=== PATIENT | female | born 1955 | race Two or more races ===

== ENCOUNTER 2016-08-20 20:35 | Emergency (ER) | payer OTHER ==
[~2016-08-20] VITALS: Ht 160 cm; Wt 69.5 kg
[~2016-08-20 20:35] MED LIST: BENA10TA48 PO; METO50TA16 PO
[2016-08-20 20:38] VITALS: Ht 160 cm; Wt 69.5 kg
--- NOTE | 2016-08-20 21:22 | ERA ---
ER Documentation Chief Complaint Date/Time DATE: 08/20/16 TIME: 21:21 Chief Complaint High blood pressure HPI The patient is a 61-year-old male, resenting to the ER because of high blood pressure at 6 PM, systolic blood pressure was 150, she became anxious and panic then called 911. She had Yor[place] food, strong coffee and lots of street candy at 5:30 PM. She normally does not eat these foods. She felt better at this time, she denies dizziness, syncope, near syncope, neck pain, chest pain, dyspnea, abdominal pain, vomiting, dysuria, diarrhea. She used to take her blood pressure medication until 3 months ago when it was stopped by her doctor because her blood pressure got better. She does not smoke nor drink Past medical history: CAD, hypertension, depression, anxiety, chronic bilateral lower extremity edema Past surgical history: Stent PCI 2 years ago, negative stress tests about 5 months ago ROS All systems reviewed and are negative except as per history of present illness. Medications Home Meds Reported Medications Ticagrelor (Brilinta) 60 Mg Tablet, 60 MG PO, TAB 08/20/16 Atorvastatin Calcium* (Atorvastatin Calcium*) 20 Mg Tablet, 20 MG PO QHS, #30 TAB 08/20/16 Aspirin* (Aspirin* EC) 81 Mg Tablet.dr, 81 MG PO DAILY, TAB 08/20/16 Clonazepam* (Clonazepam*) 0.5 Mg Tablet, 0.5 MG PO Q8H for ANXIETY, TAB 08/20/16 Lorazepam* (Lorazepam*) 0.5 Mg Tablet, 0.5 MG PO Q6 Y for ANXIETY, TAB 08/20/16 Iodine (KELP) 150 Mcg Tablet, 150 MCG PO, TAB 08/20/16 Ergocalciferol (Vitamin D2) (VITAMIN D2) 50,000 Unit Capsule, 51819 UNIT PO, CAP 08/20/16 Benazepril Hcl* (Benazepril Hcl*) Unknown Strength Tablet, PO DAILY, #30 TAB 06/25/15 Metoprolol Succinate* (Toprol XL*) Unknown Strength Tab.er.24h, PO DAILY, #20 TAB 06/25/15 Allergies Allergies: Coded Allergies: No Known Allergy (Unverified , 08/20/16) PMhx/Soc History of Surgery: No Anesthesia Reaction: No Hx Neurological Disorder: No Hx Respiratory Disorders: No Hx Cardiac Disorders: Yes (STENT X 2, HTN) Hx Psychiatric Problems: Yes (DEPRESSION, ANXIETY) Hx Miscellaneous Medical Probl: No Hx Alcohol Use: No Hx Substance Use: No Hx Tobacco Use: No Smoking Status: Never smoker Physical Exam Vitals Vital Signs Date Time Temp Pulse Resp B/P Pulse Ox O2 Delivery O2 Flow Rate FiO2 08/20/16 23:03 98.4 104 16 130/81 98 Room Air 08/20/16 21:11 98.1 82 18 164/89 08/20/16 20:38 98.3 96 18 185/89 96 Physical Exam Const: No acute distress. Head: Atraumatic. Eyes: Normal Conjunctiva. ENT: Normal External Ears, Nose and Mouth. Neck: Full range of motion. No meningismus. Resp: Clear to auscultation bilaterally. Cardio: Regular rate and rhythm. Abd: Soft, non distended, normal bowel sounds, non tender. Skin: No petechiae or rashes. Back: No midline or flank tenderness. Ext: Minimal bilateral extremity edema, no calf tenderness Neur: Awake and alert. No focal deficit Psych: Normal Mood and Affect. Result Diagram: 08/20/16214908/20/162149 Results 24 hrs Laboratory Tests Test 08/20/16 21:50 White Blood Count 9.010^3/ul Red Blood Count 4.9710^6/ul Hemoglobin 13.9g/dl Hematocrit 41.9% Mean Corpuscular Volume 84.3fl Mean Corpuscular Hemoglobin 28.0pg Mean Corpuscular Hemoglobin Concent 33.2g/dl Red Cell Distribution Width 13.3% Platelet Count 65886^3/UL Mean Platelet Volume 9.5fl Neutrophils % 74.0% Lymphocytes % 18.0% Monocytes % 5.9% Eosinophils % 0.7% Basophils % 0.7% Nucleated Red Blood Cells % 0.0/100WBC Neutrophils # 6.710^3/ul Lymphocytes # 1.610^3/ul Monocytes # 0.510^3/ul Eosinophils # 0.110^3/ul Basophils # 0.110^3/ul Nucleated Red Blood Cells # 0.010^3/ul Sodium Level 137mmol/L Potassium Level 3.9mmol/L Chloride Level 103mmol/L Carbon Dioxide Level 27mmol/L Anion Gap 11 Blood Urea Nitrogen 15mg/dl Creatinine 0.59mg/dl Glucose Level 109mg/dl Calcium Level 9.5mg/dl Current Medications Medications (Trade) Dose Ordered Sig/Georgie Route PRN Reason Start Time Stop Time Status Last Admin Dose Admin Lorazepam (Ativan) 0.5 mg ONCE ONCE PO 08/20/16 22:00 08/20/16 22:01 DC Procedures/MDM [place] [id number] Radiology Main Line: [phone] DIAGNOSTIC IMAGING REPORT Patient: KAELA VALENTINE : 1955 Age: 61 Sex: F MR #: [id number] DOS: 08/20/162137 Ordering MD: HENNY NEVES MD Location: E/R Room/Bed: PROCEDURE: XR Chest. CLINICAL INDICATION: Chest Pain. TECHNIQUE: Single frontal view of the chest. COMPARISON: None. FINDINGS: The cardiomediastinal silhouette is within normal limits. The lungs are clear. No signs of pleural fluid or pneumothorax are seen. The osseous structures and soft tissues are unremarkable. IMPRESSION: No evidence for active cardiopulmonary disease. RPTAT: [facility] Physician Meng Date Time Electronically viewed and signed by Physician Meng on 08/20/2016 23:01 RS/ CC: HENNY NEVES MD EKG: Read by emergency physician Rate/Rhythm: Normal Sinus Rhythm 79 beats/min QRS, ST, T-waves: No ST elevation, no T inversion, inferior Q waves Impression: Abnormal EKG MEDICAL MAKING DECISION: The patient is a 61-year-old female, presenting with acute anxiety attack, she was treated with Ativan 0.5 mg p.o. with good response , blood pressure improved The differential diagnoses considered include but are not limited to acute coronary syndrome, acute myocardial infarction, pericarditis, pulmonary embolism , aortic dissection, pneumonia, pleural effusion, pneumothorax, GERD, chest wall pain. Departure Diagnosis: Primary Impression: Anxiety Condition: Good Comments I discussed the findings with the patient. I advised the patient to follow-up with the primary physician in about 1-2 days, sooner if needed and return if any concern. HENNY NEVES MD Aug 20, 2016 21:22
[2016-08-20] MEDS ORDERED: LORAZEPAM 0.5 MG TAB PO ONE (22:00)
[2016-08-20 22:10] LABS: ADD SCAN DIFF NO
[2016-08-20 22:13] LABS: BASOPHIL # 0.1 10^3/ul (0.0-0.1); BASOPHILS % 0.7 % (0.0-2.0); EOSINOPHILS # 0.1 10^3/ul (0.0-0.5); EOSINOPHILS % 0.7 % (0.0-7.0); HEMATOCRIT 41.9 % (37.0-47.0); HEMOGLOBIN 13.9 g/dl (12.0-16.0); LYMPHOCYTES # 1.6 10^3/ul (0.8-2.9); MEAN CORPUSCULAR HGB CONC 33.2 g/dl (32.0-37.0); MEAN CORPUSCULAR VOLUME 84.3 fl (82.0-101.0); MEAN PLATELET VOLUME 9.5 fl (7.4-10.4); MONOCYTE # 0.5 10^3/ul (0.3-0.9); MONOCYTES % 5.9 % (0.0-11.0); NEUTROPHIL # 6.7 10^3/ul (1.6-7.5); PLATELET COUNT 217 10^3/UL (140-415); RED BLOOD COUNT 4.97 10^6/ul (4.20-5.40); RED CELL DISTRIBUTION WIDTH 13.3 % (11.5-14.5)
[2016-08-20] MEDS ORDERED: ERGO500037 PO (22:24)
[2016-08-20 22:30] LABS: CALCIUM 9.5 mg/dl (8.4-10.2); CREATININE 0.59 mg/dl (0.44-1.00); POTASSIUM 3.9 mmol/L (3.5-5.1)
[2016-08-20] MEDS ORDERED: TICA60TA PO (22:30)
[2016-08-20] MEDS ORDERED: CLON0.5T4 PO (22:30)
[2016-08-20] MEDS ORDERED: IODI150T PO (22:30)
[2016-08-20] MEDS ORDERED: LORA0.5T PO (22:30)
[2016-08-20] MEDS ORDERED: ATOR20TA38 PO (22:30)
[2016-08-20] MEDS ORDERED: ASPI-664 PO (22:30)
--- NOTE | 2016-08-20 23:02 | RADRPT ---
PROCEDURE: XR Chest. CLINICAL INDICATION: Chest Pain. TECHNIQUE: Single frontal view of the chest. COMPARISON: None. FINDINGS: The cardiomediastinal silhouette is within normal limits. The lungs are clear. No signs of pleural f luid or pneumothorax are seen. The osseous structures and soft tissues are unremarkable. IMPRESSION: No evidence for active cardiopulmonary disease. RPTAT: [facility] Physician Meng Date Time Electronically viewed and signed by Physician Meng on 08/20/2016 23:01 RS/
[2016-08-20 23:03] VITALS: TEMP 98.4
[2016-08-20 23:26] VITALS: BP 128/85; PULSE 88; RESP 16
== END 2016-08-20 23:29 | disposition home or self-care (01) ==
LOC: E/R 20:35
DX: F41.9 Anxiety disorder, unspecified (principal); I25.10 Atherosclerotic heart disease of native coronary artery without angina pectoris; Z79.82 Long term (current) use of aspirin; Z98.61 Coronary angioplasty status
CPT/HCPCS: 36415; 71010; 80048; 85025; 93005; Z7502; 99285

== ENCOUNTER 2017-10-23 00:16 | Emergency (ER) | END 2017-10-23 05:00 | disposition home or self-care (01) ==